=== PATIENT | male | born 1945 | race Hispanic/Latino ===

== ENCOUNTER 2017-03-07 06:45 | Day surgery (SDC) | payer MEDICARE, OTHER ==
[2017-02-22 14:50] VITALS: BMI 31.0
[2017-03-07] MEDS ORDERED: Sodium Chloride 0.9% 1,000 ML IV SCH (08:00)
[2017-03-07] MEDS ORDERED: Midazolam 2 MG/2 ML VIAL ONE (08:10)
[2017-03-07] MEDS ORDERED: Propofol 10 mg/ml Inj (20 ML) ONE ×3 (08:10→09:07)
[2017-03-07 10:07] VITALS: BP 134/73; RESP 19; O2SAT 96
[2017-03-07 13:02] VITALS: PULSE 78; TEMP 98.3
== END 2017-03-07 10:45 | disposition home or self-care (01) ==
LOC: ENDO 06:45
PROVIDERS: ATTEND Specialist
DX: D12.4 Benign neoplasm of descending colon (principal); D12.5 Benign neoplasm of sigmoid colon; D12.3 Benign neoplasm of transverse colon; K63.5 Polyp of colon; K57.30 Diverticulosis of large intestine without perforation or abscess without bleeding; K64.8 Other hemorrhoids; I10 Essential (primary) hypertension; Z85.51 Personal history of malignant neoplasm of bladder
CPT/HCPCS: 45385; 72HRC

== ENCOUNTER 2017-03-07 16:29 | Inpatient (IN) | payer MEDICARE, OTHER ==
[2017-03-07] MEDS ORDERED: Sodium Chloride 0.9% 1,000 ML IV STA (17:18)
--- NOTE | 2017-03-07 17:20 | ED PDOC ---
Arrival/HPI - General Historian: Patient - History of Present Illness Time/Duration: Prior to Arrival Symptom Onset: Sudden Symptom Course: Improving Activities at Onset: Rest Context: Home <Noe Moore - Last Filed: 03/07/17 20:18> <Ruby Talamantes - Last Filed: 03/07/17 20:30> - General Chief Complaint: Fever Time Seen by Provider: 03/07/17 16:42 - History of Present Illness Narrative History of Present Illness (Text): 03/07/17 17:12 71yo M PMH colonic polyps, HTN, HLD, herniated discs, bladder CA (f/u at [facility]), and malaria (in s), who presents s/p colonoscopy (by Dr. May) earlier today with fevers, chills, raspy voice. pt states that he was coughing during the procedure but was not intubated or receive any oral treatments. The patient denies cp, sob, headaches, current cough, sore throat, wheezing, abdominal pain, n/v/d, dysuria, leg swelling or any numbness/tingling. pt states that he called Dr. May, who recommended to go to ER to get worked up. (Noe Moore) Past Medical History - Provider Review Nursing Documentation Reviewed: Yes - Past History Past History: Non-Contributing - Infectious Disease Hx of Infectious Diseases: None - Tetanus Immunization Tetanus Immunization: Up to Date - Past Medical History Past Medical History: Non-Contributing - Cardiac Hx Cardiac Disorders: Yes Hx Hyperlipemia: Yes Hx Hypertension: Yes Hx Pacemaker: No - Pulmonary Hx Respiratory Disorders: No Hx Asthma: No - Neurological Hx Neurological Disorder: No Hx Paralysis: No - HEENT Hx HEENT Disorder: No - Renal Hx Renal Disorder: No - Endocrine/Metabolic Hx Endocrine Disorders: No - Hematological/Oncological Hx Blood Disorders: No Hx Blood Transfusions: No Hx Blood Transfusion Reaction: No Hx Cancer: Yes (bladder CA s/p chemo) Hx Chemotherapy: Yes - Integumentary Hx Dermatological Disorder: No - Musculoskeletal/Rheumatological Hx Musculoskeletal Disorders: Yes Hx Herniated Disk: Yes - Gastrointestinal Hx Gastrointestinal Disorders: No Other/Comment: colonic polyps. hx malaria x 2 - Genitourinary/Gynecological Hx Bladder Cancer: Yes (s/p chemo) - Psychiatric Hx Psychophysiologic Disorder: No Hx Emotional Abuse: No Hx Physical Abuse: No Hx Substance Use: No - Past Surgical History Past Surgical History: Non-Contributing - Surgical History Hx Appendectomy: Yes Hx Cardiac Catheterization: Yes (normal ) Other/Comment: multiple colonscopy - Anesthesia Hx Anesthesia Reactions: No Hx Malignant Hyperthermia: No - Suicidal Assessment Feels Threatened In Home Enviroment: No <Noe Moore - Last Filed: 03/07/17 20:18> Family/Social History - Physician Review Nursing Documentation Reviewed: Yes Family/Social History: No Known Family HX Smoking Status: Former Smoker Hx Alcohol Use: Yes (SOCIAL USE-BEER) Frequency of alcohol use: Daily (2 beers) Hx Substance Use: No Hx Substance Use Treatment: No <Noe Moore - Last Filed: 03/07/17 20:18> Allergies/Home Meds <Noe Moore - Last Filed: 03/07/17 20:18> <Ruby Talamantes - Last Filed: 03/07/17 20:30> Allergies/Adverse Reactions: Allergies No Known Allergies Allergy (Verified 12/02/12 09:04) Home Medications: Home Meds Medication Instructions Recorded Confirmed Lisinopril/Hydrochlorothiazide 1 tab PO DAILY 12/02/12 03/07/17 [Lisinopril and Hydrochlorothiazide 25 mg-20 M] Metoprolol Succinate [Metoprolol 50 mg PO BID 12/02/12 03/07/17 Succinate Xl] Simvastatin [Simvastatin] 80 mg PO DAILY 06/19/16 03/07/17 Review of Systems - Physician Review All systems were reviewed & negative as marked: Yes - Review of Systems Constitutional: Fevers, Other (chills) Respiratory: absent: SOB, Cough, Wheezing Cardiovascular: absent: Chest Pain, Palpitations Gastrointestinal: absent: Abdominal Pain, Diarrhea, Nausea, Vomiting <Noe Moore - Last Filed: 03/07/17 20:18> Physical Exam Vital Signs Reviewed: Yes Appearance: Positive for: Well-Appearing Pain Distress: None Mental Status: Positive for: Alert and Oriented X 3 - Systems Exam Head: Present: Atraumatic, Normocephalic Pupils: Present: PERRL Extroacular Muscles: Present: EOMI Conjunctiva: Present: Normal Mouth: Present: Moist Mucous Membranes Pharnyx: Present: Normal Neck: Present: Normal Range of Motion. No: Meningeal Signs Respiratory/Chest: Present: Good Air Exchange, Rhonchi (L middle lobe). No: Respiratory Distress, Accessory Muscle Use, Wheezes, Tachypneic, Tender to Palpation Cardiovascular: Present: Normal S1, S2, Tachycardic. No: Murmurs Abdomen: Present: Normal Bowel Sounds. No: Tenderness, Distention, Peritoneal Signs, Guarding Back: Present: Normal Inspection. No: CVA Tenderness Upper Extremity: Present: Normal Inspection Lower Extremity: Present: Normal Inspection. No: Edema, CALF TENDERNESS Neurological: Present: CN II-XII Intact, Speech Normal, Motor Func Grossly Intact, Normal Sensory Function Skin: Present: Warm, Dry, Normal Color. 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 Otherwise normal EKG (Noe Moore) A 71 year old male with fever, chills and cough. In agreement with resident note , which includes further HPI details. Patient was seen and evaluated with resident, came up with plan and treatment together. 03/07/17 20:28 Patient with SIRS 4/4 post colonoscopy - CXR unremarkable. Discussed with Dr. May, who said to hold on abdominal imaging as the patient has no abdominal pain at this time. Patient possibly bacteremic - blood and urine cultures drawn and started emperically on iv antibiotics. Discussed with Dr. Fritz for admission to his service. (Ruby Talamantes) - Lab Interpretations Lab Results: 03/07/17 17:20 03/07/17 17:20 Lab Results 03/07/17 17:20: Sodium 130 L, Chloride 97 L, Potassium 4.5, Carbon Dioxide 24, Anion Gap 14, BUN 13, Creatinine 0.9, Est GFR ( Amer) > 60, Est GFR (Non- Af Amer) > 60, Random Glucose 117 H, Calcium 9.6, Phosphorus 3.2, Magnesium 1.8 , Total Bilirubin 1.1, AST 33, ALT 25, Alkaline Phosphatase 47, Lactate Dehydrogenase 421, Total Creatine Kinase 95, Troponin I < 0.01, Total Protein 7.5, Albumin 4.5, Globulin 3.0, Albumin/Globulin Ratio 1.5, Lipase 88 03/07/17 17:20: pO2 65 H, VBG pH 7.45 H, VBG pCO2 36.0 L, VBG HCO3 25.0, VBG Total CO2 26.1, VBG O2 Sat (Calc) 96.5 H, VBG Base Excess 1.3, VBG Potassium 4.4 , Sodium 130.0 L, Chloride 97.0 L, Glucose 122 H, Lactate 1.3, FiO2 21.0, Venous Blood Potassium 4.4 03/07/17 17:20: PT 10.7, INR 0.99, APTT 26.6 03/07/17 17:20: WBC 12.9 H, RBC 4.84, Hgb 15.5, Hct 44.5, MCV 91.9, MCH 32.0, MCHC 34.8, RDW 13.1, Plt Count 172, MPV 9.7, Gran % 85.4 H, Lymph % (Auto) 7.1 L , [place] % (Auto) 6.7 H, Eos % (Auto) 0.6 L, Baso % (Auto) 0.2, Gran # 10.99 H, Lymph # 0.9 L, [place] # 0.9 H, Eos # 0.1, Baso # 0.02, ESR 5 - RAD Interpretation Radiology Orders: 03/07/17 17:16 CHEST TWO VIEWS (PA/LAT) [RAD] Stat - Medication Orders Current Medication Orders: Discontinued Medications Acetaminophen (Tylenol 325mg Tab) 975 mg PO STAT STA Stop: 03/07/17 17:17 Last Admin: 03/07/17 17:42 Dose: 975 mg MAR Pain/Vitals Document 03/07/17 17:42 AB (Rec: 03/07/17 17:42 AB [id number]) Pain Reassessment Is This A Pain ReAssessment? No Sleep Is patient sleeping during reassessment? No Presence of Pain Presence of Pain No Re-Assess: MAR Pain/Vitals Document 03/07/17 18:32 AB (Rec: 03/07/17 19:37 AB [id number]) Pain Reassessment Is This A Pain ReAssessment? No Sleep Is patient sleeping during reassessment? No Presence of Pain Presence of Pain No Vitals Temperature (97.6 F-99.6 F) 98.9 F Sodium Chloride (Sodium Chloride 0.9%) 1,000 mls @ 999 mls/hr IV .Q1H1M STA Stop: 03/07/17 18:18 Last Admin: 03/07/17 17:42 Dose: 999 mls/hr eMAR Start Stop Document 03/07/17 17:42 AB (Rec: 03/07/17 17:42 AB [id number]) Intravenous Solution Start Date 03/07/17 Start Time 17:42 End Date 03/07/17 End time 18:42 Total Infusion Time 60 Piperacillin Sod/Tazobactam Sod (Zosyn 3.375 In Ns 100ml) 100 mls @ 200 mls/hr IVPB STAT STA PRN Reason: Protocol Stop: 03/07/17 18:26 Last Admin: 03/07/17 18:30 Dose: 200 mls/hr eMAR Start Stop Document 03/07/17 18:30 ALANIS (Rec: 03/07/17 18:36 ALANIS [id number]) Intravenous Solution Start Date 03/07/17 Start Time 18:30 End Date 03/07/17 End time 19:00 Total Infusion Time 30 Vancomycin HCl 1 gm/ Sodium (Chloride) 250 mls @ 133.333 mls/hr IV STAT STA PRN Reason: Protocol Stop: 03/07/17 19:50 Last Admin: 03/07/17 19:27 Dose: 133.333 mls/hr eMAR Start Stop Document 03/07/17 19:27 AB (Rec: 03/07/17 19:28 AB [id number]) Intravenous Solution Start Date 03/07/17 Start Time 19:27 End Date 03/07/17 <Noe Moore - Last Filed: 03/07/17 20:18> - PA / BILLET HEADER / Resident Statement MD/DO has reviewed & agrees with the documentation as recorded. MD/DO has examined the patient and agrees with the treatment plan. - Scribe Statement The provider has reviewed the documentation as recorded by the Scribe <Ruby Talamantes - Last Filed: 03/07/17 20:30> - Scribe Statement Olesya Adam Provider Scribe Attestation: All medical record entries made by the Scribe were at my direction and personally dictated by me. I have reviewed the chart and agree that the record accurately reflects my personal performance of the history, physical exam, medical decision making, and the department course for this patient. I have also personally directed, reviewed, and agree with the discharge instructions and disposition. (Ruby Talamantes) Disposition/Present on Arrival - Present on Arrival Any Indicators Present on Arrival: No History of DVT/PE: No History of Uncontrolled Diabetes: No Urinary Catheter: No History of Decub. Ulcer: No History Surgical Site Infection Following: None - Disposition Have Diagnosis and Disposition been Completed?: Yes Disposition Time: 20:17 Patient Plan: Observation <Noe Moore - Last Filed: 03/07/17 20:18> - Disposition Disposition Time: 18:15 Patient Plan: Admission <Ruby Talamantes - Last Filed: 03/07/17 20:30> - Disposition Diagnosis: Fever, Leukocytosis Disposition: HOSPITALIZED Patient Problems: Current Active Problems Problem Status Onset Fever Acute Leukocytosis Acute Condition: STABLE
[2017-03-07 17:45] LABS: VENOUS BLOOD GAS BASE EXCESS 1.3 mmol/L (0.0-2.0); VENOUS BLOOD PH 7.45 (7.32-7.43)
[2017-03-07 17:48] LABS: BASO # 0.02 K/mm3 (0.0-2.0); BASO % 0.2 % (0.0-3.0); EOS # 0.1 (0.0-0.7); EOS % 0.6 % (1.5-5.0); GRAN # 10.99 (1.4-6.5); GRAN % 85.4 % (50.0-68.0); HEMATOCRIT 44.5 % (42.0-52.0); LYMPH # 0.9 (1.2-3.4); LYMPH % 7.1 % (22.0-35.0); MEAN CELL VOLUME 91.9 fl (80.0-105.0); MEAN CORPUSCULAR HGB CONC 34.8 g/dl (31.0-37.0); MEAN PLATELET VOLUME 9.7 fl (7.0-11.0); MONO # 0.9 (0.1-0.6); MONO % 6.7 % (1.0-6.0); RED CELL DISTRIBUTION WIDTH 13.1 % (11.5-14.5); WHITE BLOOD COUNT 12.9 10^3/ul (4.5-11.0)
[2017-03-07 17:54] LABS: INR 0.99 (0.93-1.08); PARTIAL THROMBOPLASTIN TIME 26.6 Seconds (23.7-30.8)
[2017-03-07 17:55] LABS: ALB/GLOB RATIO 1.5 (1.1-1.8); ALKALINE PHOSPHATASE 47 U/L (38-126); ALT/SGPT 25 U/L (7-56); AST/SGOT 33 U/L (17-59); BILIRUBIN,TOTAL 1.1 mg/dL (0.2-1.3); BLOOD UREA NITROGEN 13 mg/dL (7-21); CALCIUM 9.6 mg/dL (8.4-10.5); CARBON DIOXIDE 24 mmol/L (21-33); CHLORIDE 97 mmol/L (98-107); GFR AFRICAN-AMERICAN > 60; GLUCOSE,RANDOM 117 mg/dL (70-110); LIPASE 88 U/L (23-300); MAGNESIUM 1.8 mg/dL (1.7-2.2); PHOSPHOROUS 3.2 mg/dL (2.5-4.5); POTASSIUM 4.5 mmol/L (3.6-5.0); SODIUM 130 mmol/L (132-148); TOTAL PROTEIN 7.5 g/dL (5.8-8.3)
[2017-03-07] MEDS ORDERED: Piperacillin/Tazobact 3.375 gm 100 ML IVPB STA (17:57)
[2017-03-07 18:07] LABS: TROPONIN I < 0.01 ng/mL
--- NOTE | 2017-03-07 19:04 | CARD ---
APPROVED REPORT EKG Measurement Heart [id number] <Conclusion> Sinus tachycardia Otherwise normal ECG
[2017-03-07 21:33] LABS: URINE BILIRUBIN NEGATIVE (NEGATIVE); URINE BLOOD NEGATIVE (NEGATIVE); URINE GLUCOSE (UA) NEGATIVE (NEGATIVE); URINE KETONE NEGATIVE (NEGATIVE); URINE LEUKOCYTE ESTERASE NEGATIVE Leu/uL (NEGATIVE); URINE PROTEIN NEGATIVE mg/dL (<30 mg/dL); URINE UROBILINOGEN 0.2 E.U./dL (<1 E.U./dL)
[2017-03-07 21:42] LABS: URINE APPEARANCE CLEAR (CLEAR); URINE COLOR YELLOW (YELLOW)
[2017-03-08 01:07] VITALS: RESP 20; BMI 33.4
[2017-03-08] MEDS: Piperacillin/Tazobact 3.375 gm 100 ML IVPB SCH ×3 (06:49→18:14)
[2017-03-08 07:08] LABS: HEMATOCRIT 41.2 % (42.0-52.0); MEAN CELL VOLUME 93.4 fl (80.0-105.0); MEAN CORPUSCULAR HEMOGLOBIN 31.1 pg (25.0-35.0); MEAN CORPUSCULAR HGB CONC 33.3 g/dl (31.0-37.0); MEAN PLATELET VOLUME 9.6 fl (7.0-11.0); RED CELL DISTRIBUTION WIDTH 13.3 % (11.5-14.5); WHITE BLOOD COUNT 7.4 10^3/ul (4.5-11.0)
[2017-03-08 07:43] LABS: ALB/GLOB RATIO 1.4 (1.1-1.8); ALKALINE PHOSPHATASE 36 U/L (38-126); ALT/SGPT 21 U/L (7-56); AST/SGOT 24 U/L (17-59); BILIRUBIN,TOTAL 1.4 mg/dL (0.2-1.3); BLOOD UREA NITROGEN 10 mg/dL (7-21); CALCIUM 8.9 mg/dL (8.4-10.5); CARBON DIOXIDE 24 mmol/L (21-33); CHLORIDE 100 mmol/L (98-107); GFR AFRICAN-AMERICAN > 60; GLUCOSE,RANDOM 106 mg/dL (70-110); POTASSIUM 4.2 mmol/L (3.6-5.0); SODIUM 132 mmol/L (132-148); TOTAL PROTEIN 6.3 g/dL (5.8-8.3)
--- NOTE | 2017-03-08 07:51 | RAD ---
HISTORY: do upright chest; sob; post colonosc - r/o FA, pna COMPARISON: No prior. TECHNIQUE: Chest PA and lateral FINDINGS: LUNGS: No infiltrate. PLEURA: No significant pleural effusion identified. No pneumothorax apparent. CARDIOVASCULAR: Normal. OSSEOUS STRUCTURES: No significant abnormalities. VISUALIZED UPPER ABDOMEN: Limited visualization of upper abdomen. Please note that the examination indicates patient's semi erect. No free air seen beneath the diaphragm. Limited sensitivity in that it was not performed as a true upright film nor of lateral decubitus film. Normal. OTHER FINDINGS: None. IMPRESSION: No evidence of free intraperitoneal air. Limited examination. No infiltrate
[2017-03-08] MEDS ORDERED: Barium Sulfate Susp 2.1% w/v, 2.0% w/w 450 mL Bottle PO ONE (11:09)
[2017-03-08] MEDS: Metoprolol Succinate 50 mg XL Tab PO SCH ×2 (11:36→18:15)
--- NOTE | 2017-03-08 15:55 | CT ---
PROCEDURE: CT Abdomen and Pelvis without intravenous contrast HISTORY: polips COMPARISON: 12/02/2012 TECHNIQUE: Without contrast.. Contrast Dose: 0 Radiation dose: Total exam DLP = 1219.57 mGy-cm. This CT exam was performed using one or more of the following dose reduction techniques: Automated exposure control, adjustment of the mA and/or kV according to patient size, and/or use of iterative reconstruction technique. FINDINGS: LOWER THORAX: Unremarkable. LIVER: Unremarkable. No gross lesion or ductal dilatation. GALLBLADDER AND BILE DUCTS: Unremarkable. PANCREAS: Unremarkable. No gross lesion or ductal dilatation. SPLEEN: Unremarkable. ADRENALS: Unremarkable. No mass. KIDNEYS AND URETERS: Unremarkable. No hydronephrosis. No solid mass. VASCULATURE: There is a chronic short-segment dissection of the infrarenal abdominal aorta unchanged in appearance compared to examination of 12/02/2012. There is no evidence of abdominal aortic aneurysm. BOWEL: There is a small diverticulum arising from the gastric cardia. This contains oral contrast and small amount gas. There is mild diverticulosis of the sigmoid colon. There is no evidence of diverticulitis. A Shira Shira There are no other abnormal bowel loops. There is no bowel obstruction. APPENDIX: Not identified. No secondary findings to suggest appendicitis PERITONEUM: Unremarkable. No free fluid. No free air. LYMPH NODES: Unremarkable. No enlarged lymph nodes. BLADDER: Unremarkable. REPRODUCTIVE: Unremarkable prostate BONES: No acute fracture. OTHER FINDINGS: None. IMPRESSION: No acute abnormality. Stable chronic short-segment infrarenal abdominal aortic dissection. Sigmoid diverticulosis. Incidental small gastric diverticulum.
[2017-03-08 16:33] VITALS: PULSE 80; TEMP 98.4; O2SAT 96
[2017-03-08 18:21] VITALS: BP 144/61
--- NOTE | 2017-03-09 03:08 | CON ---
DATE: 03/08/2017 LOCATION: The patient is in bed and was seen earlier today in 563, bed 2. CHIEF COMPLAINT: Fever of 102 x1 day. HISTORY OF PRESENT ILLNESS: This is a 71-year-old male with obesity with a BMI of 32, who yesterday had a colonoscopy and post colonoscopy, the patient had a fever. He had raspy voice, fevers and chills. He did not have any abdominal pain. He states his who is a nurse is at the bedside who states the patient did not have any abdominal pain. He did have fevers and chills. He has difficulty with speaking and no nausea or vomiting. No dysuria or frequency. No headaches or blurred vision. PAST MEDICAL HISTORY: Significant for malaria in [place] and urinary bladder cancer is followed at [facility], and he had treatment some time ago when the patient was followed up with a cystoscopy which was negative according to the patient's nurse, and the patient. Past medical history is significant for urinary bladder cancer, malaria, hypertension, herniated disc. PAST SURGICAL HISTORY: Significant for appendectomy and cystoscopies. ALLERGIES: PATIENT HAS NO KNOWN ALLERGIES. SOCIAL HISTORY: He had no recent travel. He lives with his . MEDICATIONS: At home include statins, simvastatin, metoprolol, lisinopril, hydrochlorothiazide. PHYSICAL EXAMINATION: GENERAL: He is in bed, answering questions appropriately, awake and oriented, nontoxic. VITAL SIGNS: With a temperature of 98; T-max was 102.5 and pulse of 83, it was up to 120; respiratory rate of 20; and blood pressure 126/70. HEENT: Reveals there is an erythematous pharynx. No exudates and oral cavity has mild erythema. NECK: Supple. LUNGS: Decreased breath sounds. HEART: Normal S1 and S2. ABDOMEN: Soft, nontender. No organomegaly. No rebound, guarding or masses. LABORATORY EXAMINATION: Reveals a white count of 12,900, hemoglobin of 16, platelets of 172. Sed rate is 5. Chemistries reveals a BUN of 13, creatinine of 0.9. C-reactive protein is 6.8, procalcitonin 0.17. Cortisol level is 15.4, range being for a.m. ; alk phos is 36. Urinalysis is completely negative. Cultures are pending. The patient had a chest x-ray, no infiltrate. ASSESSMENT AND PLAN: This is a 71-year-old male status post colonoscopy with multiple polypectomies with systemic inflammatory response syndrome. Temperature of 102 with a heart rate of 120 and white count of 12,900. Etiology of which is not clear with a completely negative abdomen. We will check on the blood cultures, check on the urine cultures. Continue Zosyn. Follow the fever curve. Order a CAT scan the abdomen and pelvis and we will make further recommendation upon availability of these results. We will follow with you. Case discussed with the patient's who is a nurse at length. Ihsan Harman MD
--- NOTE | 2017-03-09 08:43 | CON ---
GASTROENTEROLOGY CONSULTATION DATE: 03/08/2017 REQUESTING PHYSICIAN: Dr. Rodriguez. REASON FOR CONSULTATION: I have been asked to see this 71-year-old male who underwent a colonoscopy yesterday morning with the removal of numerous large polyps with difficulty during the procedure of maintaining an airway as the patient has obstructive sleep apnea with an extremely short neck and he was coughing and producing thick mucoid sputum. During the colonoscopy, he required a nasal laryngeal airway as well as vigorous suctioning with a Yankauer tube to clear his oral airway of secretions. The patient's called me approximately 8 hours after the colonoscopy, stating that he was febrile to 102.5 and was complaining of a sore throat. He denied any abdominal pain, nausea, vomiting, rectal bleeding or melena. He was urged to come to the emergency room for further treatment. In the emergency room he was found to have a temperature of 102.5 with mild tachycardia at 120. A chest x-ray was negative for aspiration. He was admitted for further workup and observation with parra culture. PAST MEDICAL HISTORY: His past medical history is notable for multiple colon polyps bladder cancer, hypertension, hyperlipidemia, herniated disks, malaria. PAST SURGICAL HISTORY: Notable for appendectomy. SOCIAL HISTORY: He is a former cigarette smoker having quit several years ago. He drinks beer on a daily basis. FAMILY HISTORY: Noncontributory. REVIEW OF SYSTEMS: A 14-point review of systems is positive for fever and sore throat. PHYSICAL EXAMINATION: GENERAL: Well-developed male lying in bed in no acute distress. VITAL SIGNS: Reveal temperature of 98.4, blood pressure 142/58, heart rate of 80. HEENT: Reveal small area of erythema in his oropharynx in the soft palate. There is no mass or exudate. NECK: Supple without any crepitus. CHEST: Reveal lungs to be clear. HEART: Exam reveals a regular rate and rhythm. ABDOMEN: Obese, soft, nontender. EXTREMITIES: Show no edema. LABORATORY DATA: Reveal on admission to the hospital his white blood cell count was 12.9. This morning it is down to 7.4. His sed rate on admission was 5. Coags are normal. Chemistries reveal normal electrolytes. His procalcitonin level is 0.17. CT scan of the abdomen and pelvis was performed in the hospital and showed no evidence of any inflammatory changes, free fluid, free air or other infectious process. IMPRESSION: This 71-year-old male with fever to 102.5 after a colonoscopy with sore throat and a raspy voice. The sore throat is from vigorous suctioning of his oral airway to clear the secretions during colonoscopy. He has an extremely short neck and obstructive sleep apnea. There is no signs of infection at this time. Blood cultures at 24 hours were negative. RECOMMENDATIONS: The patient will be discharged home with instructions for saline gargles. Cepacol Lozenges as needed. Tylenol as needed for throat pain. He will also be followed up with me in the office. The patient was instructed with his to return back to the hospital should he have any further recurrence of fever. Robert May MD
== END 2017-03-08 21:44 | disposition home or self-care (01) | DRG 864 ==
LOC: ED 16:29 → ERH 19:42 → 5RNO 22:31
PROVIDERS: ADMIT Internal Medicine Nephrology; ATTEND Internal Medicine Nephrology
DX: R50.9 Fever, unspecified (principal); D72.829 Elevated white blood cell count, unspecified; I10 Essential (primary) hypertension; M51.9 Unspecified thoracic, thoracolumbar and lumbosacral intervertebral disc disorder; E66.9 Obesity, unspecified; Z68.32 Body mass index [BMI] 32.0-32.9, adult; Z85.51 Personal history of malignant neoplasm of bladder; Z86.13 Personal history of malaria

== ENCOUNTER 2018-06-21 08:58 | Outpatient (CLI) | payer MEDICARE, OTHER | END 2018-06-21 08:59 | disposition home or self-care (01) | LOC: CARDIO 08:58 ==